=== PATIENT | male | born 1960 ===

== ENCOUNTER 2023-01-21 05:15 | Day surgery (SDC) | payer OTHER ==
[2023-01-15 08:30] LABS: HEMATOCRIT 42.8 % (39.0-48.0); HEMOGLOBIN 14.6 g/dL (13-16.00); MEAN CELL VOLUME 94.4 fL (80.0-100.00); MEAN CORPUSCULAR HEMOGLOBIN 32.2 pg (27.00-32.0); MEAN CORPUSCULAR HGB CONC 34.1 g/dl (32.0-36.0); PLATELET COUNT 266 K/uL (150-450); RED BLOOD COUNT 4.53 M/uL (4.00-6.00); RED CELL DISTRIBUTION WIDTH 14.3 % (11.5-14.5)
[2023-01-15 08:31] LABS: URINE APPEARANCE Clear; URINE BILIRRUBIN Negative (NEGATIVE); URINE BLOOD Negative; URINE COLOR Yellow; URINE GLUCOSE Negative (NEGATIVE); URINE LEUKOCYTE Negative; URINE NITRATE Negative; URINE PROTEIN Negative (NEGATIVE); URINE UROBILINOGEN 0.2 E.U./dl
[2023-01-15 08:35] LABS: URINE WBC 5.5 uL (0.0-23.2)
[2023-01-15 08:45] LABS: URINE BACTERIA 1.2 uL (0.0-1933); URINE EPITHELIAL CELLS 1.2 uL (0.0-38.8); URINE RBC 1.5 uL (0.0-20.8)
[2023-01-15 09:10] LABS: INR 0.98; PARTIAL THROMBOPLASTIN TIME 31.9 SECONDS (22.0-34.0); PROTHROMBIN TIME 10.3 SECONDS (9.0-11.5)
[2023-01-15 09:13] LABS: ALBUMIN 3.6 gm/dL (3.4-5.0); BILIRUBIN TOTAL 0.4 mg/dL (0.3-1.2); CALCIUM 9.1 mg/dL (8.5-10.1); CREATININE SERUM 1.19 mg/dL (0.70-1.30); GFR 61.74; GLOBULINA 3.9 G/DL (2.4-3.5); POTASSIUM 4.5 mEq/L (3.5-5.1); TOTAL PROTEIN 7.5 gm/dL (6.4-8.2)
[~2023-01-21 05:15] MED LIST: COZAAR100 MG PO
== END 2023-01-21 20:15 | disposition home or self-care (01) ==
LOC: CIR.AMB 05:15
PROVIDERS: ATTEND Otolaryngology
DX: D11.0 Benign neoplasm of parotid gland (principal); Z20.822 Contact with and (suspected) exposure to COVID-19; I10 Essential (primary) hypertension

== ENCOUNTER 2023-02-07 09:17 | Outpatient (CLI) | payer OTHER | END 2023-02-07 09:30 | disposition home or self-care (01) | LOC: SONOGRAMA 09:17 | PROVIDERS: ATTEND Otolaryngology | DX: R22.1 Localized swelling, mass and lump, neck (principal); E04.1 Nontoxic single thyroid nodule ==

== ENCOUNTER 2023-02-28 11:45 | Outpatient (CLI) | payer OTHER | END 2023-02-28 11:49 | disposition home or self-care (01) | LOC: SONOGRAMA 11:45 | PROVIDERS: ATTEND Pathology Anatomic Pathology & Clinical Pathology | DX: E04.1 Nontoxic single thyroid nodule (principal); D44.0 Neoplasm of uncertain behavior of thyroid gland ==

== ENCOUNTER 2023-03-28 10:35 | Outpatient (CLI) | payer OTHER | END 2023-03-28 10:37 | disposition home or self-care (01) | LOC: SONOGRAMA 10:35 | PROVIDERS: ATTEND Pathology Anatomic Pathology & Clinical Pathology | DX: D44.0 Neoplasm of uncertain behavior of thyroid gland (principal); C73 Malignant neoplasm of thyroid gland ==

== ENCOUNTER 2023-06-01 07:36 | Outpatient (CLI) | payer OTHER ==
[2023-06-01 08:57] LABS: ALBUMIN 3.6 gm/dL (3.4-5.0); CALCIUM 9.2 mg/dL (8.5-10.1); CREATININE SERUM 1.24 mg/dL (0.70-1.30); GFR 58.88; PHOSPHOROUS 2.8 mg/dL (2.5-4.9); POTASSIUM 5.34 mEq/L (3.5-5.1); T4 FREE 0.82 NG/ML (0.76-1.46); TSH 1.65 uIU/mL (0.358-3.74)
== END 2023-06-01 07:41 | disposition home or self-care (01) ==
LOC: LAB 07:36
PROVIDERS: ATTEND Otolaryngology
DX: E04.2 Nontoxic multinodular goiter (principal)

== ENCOUNTER 2024-04-10 09:46 | Outpatient (CLI) | payer OTHER | END 2024-04-10 09:50 | disposition home or self-care (01) | LOC: SONOGRAMA 09:46 | PROVIDERS: ATTEND Otolaryngology | DX: E04.1 Nontoxic single thyroid nodule (principal) ==

== ENCOUNTER 2024-04-20 07:55 | Day surgery (SDC) | payer OTHER ==
[2024-04-10 09:05] VITALS: BP 149/90
[2024-04-10 09:12] LABS: HEMATOCRIT 45.3 % (39.0-48.0); HEMOGLOBIN 15.7 g/dL (13-16.00); MEAN CELL VOLUME 95.2 fL (80.0-100.00); MEAN CORPUSCULAR HGB CONC 34.6 g/dl (32.0-36.0); PLATELET COUNT 206 K/uL (150-450); RED BLOOD COUNT 4.76 M/uL (4.00-6.00); RED CELL DISTRIBUTION WIDTH 14.1 % (11.5-14.5)
[2024-04-10 09:14] LABS: URINE APPEARANCE Clear; URINE BILIRRUBIN Negative (NEGATIVE); URINE BLOOD Negative; URINE COLOR Yellow; URINE GLUCOSE Negative (NEGATIVE); URINE KETONE Negative (NEGATIVE); URINE LEUKOCYTE Negative; URINE NITRATE Negative; URINE PROTEIN Negative (NEGATIVE); URINE UROBILINOGEN 0.2 E.U./dl
[2024-04-10 09:19] LABS: URINE BACTERIA 2.4 uL (0.0-1933); URINE CAST 0.14 uL (0.0-1.40); URINE EPITHELIAL CELLS 0.9 uL (0.0-38.8); URINE RBC 1.3 uL (0.0-20.8); URINE WBC 1.7 uL (0.0-23.2)
[2024-04-10 09:33] LABS: INR 1.02; PARTIAL THROMBOPLASTIN TIME 31.3 SECONDS (22.0-34.0); PROTHROMBIN TIME 11.1 SECONDS (9.0-11.5)
[2024-04-10 10:37] LABS: ALBUMIN 3.8 gm/dL (3.4-5.0); BILIRUBIN TOTAL 0.47 mg/dL (0.3-1.2); CALCIUM 9.5 mg/dL (8.5-10.1); CREATININE SERUM 1.33 mg/dL (0.70-1.30); GFR 54.13; GLOBULINA 3.5 G/DL (2.4-3.5); POTASSIUM 5.06 mEq/L (3.5-5.1); TOTAL PROTEIN 7.3 gm/dL (6.4-8.2)
[~2024-04-20] VITALS: Ht 172.7 cm; Wt 95.3 kg
[2024-04-20] MEDS ORDERED: SUGAMMADEX SODIUM 200 MG/2 ML VIAL IV ONE ×2 (18:28→18:41)
[2024-04-20] MEDS ORDERED: CIPROFLOXACIN HCL 0.175 MG/DR DROPS OTIC ONE (18:30)
[2024-04-20] MEDS ORDERED: OXYMETAZOLINE HCL 15 ML NASAL DROPS NASAL ONE (18:30)
[2024-04-20] MEDS ORDERED: CHLORHEXIDINE GLUCONATE 120 ML BOTTLE TOP ONE (18:50)
== END 2024-04-20 21:50 | disposition home or self-care (01) ==
LOC: CIR.AMB 07:55
PROVIDERS: ATTEND Otolaryngology
DX: H65.23 Chronic serous otitis media, bilateral (principal); H73.893 Other specified disorders of tympanic membrane, bilateral; I10 Essential (primary) hypertension

== ENCOUNTER 2024-10-13 10:53 | Outpatient (CLI) | payer OTHER | END 2024-10-13 10:56 | disposition home or self-care (01) | LOC: SONOGRAMA 10:53 | PROVIDERS: ATTEND Otolaryngology | DX: E04.2 Nontoxic multinodular goiter (principal) ==